=== PATIENT | female | born 1975 | race Caucasian/White ===

== ENCOUNTER → 2018-06-05 | Outpatient (CLI) | payer BC ==
[~2018-06-05] MED LIST: ACET325; ASPI325; PREN-16 PO; TUM
[2018-06-05 13:21] LABS: BASOPHILS ABSOLUTE AUTO 0.04 K/mm3 (0.00-0.23); BASOPHILS PERCENT AUTO 1 % (0-2); EOSINOPHILS ABSOLUTE AUTO 0.06 K/mm3 (0.00-0.68); EOSINOPHILS PERCENT AUTO 1 % (0-6); Hematocrit 43.4 % (33.0-51.0); Hemoglobin 14.4 g/dL (11.5-16.0); IMMATURE GRAN ABSOLUTE AUTO 0.03 K/mm3 (0.00-0.10); IMMATURE GRAN PERCENT AUTO 0 % (0-1); LYMPHOCYTES ABSOLUTE AUTO 2.39 K/mm3 (0.84-5.20); LYMPHOCYTES PERCENT AUTO 28 % (21-46); MONOCYTES ABSOLUTE AUTO 0.54 K/mm3 (0.16-1.47); MONOCYTES PERCENT AUTO 6 % (4-13); Mean Corpuscular HGB 30.5 pg (26.0-34.0); Mean Corpuscular HGB Conc 33.2 g/dL (31.5-36.5); Mean Corpuscular Volume 92 fL (80-100); Mean Platelet Volume 9.8 fL (9.1-12.4); NEUTROPHILS ABSOLUTE AUTO 5.39 K/mm3 (1.96-9.15); NEUTROPHILS PERCENT AUTO 64 % (41-73); Platelet Count 311 K/mm3 (150-400); RDW Coefficient Variation 12.1 % (11.7-14.2); RDW Standard Deviation 40.7 fL (35.1-46.3); Red Blood Cell Count 4.72 M/mm3 (3.80-5.20); White Blood Cell Count 8.45 K/mm3 (4.00-11.30)
[2018-06-05 13:40] LABS: Anion Gap 9 mmol/L (6-16); Blood Urea Nitrogen 11 mg/dL (8-24); Bun/Creatinine Ratio 13.4 (12.0-20.0); CO2, Blood 28 mmol/L (21-32); Calcium, Blood 8.4 mg/dL (8.5-10.1); Chloride, Blood 106 mmol/L (98-108); Creatinine, Blood 0.82 mg/dL (0.40-1.00); Glomerular Filtration Rate >60 (60-); Glucose, Blood 139 mg/dL (70-99); Potassium, Blood 3.4 mmol/L (3.5-5.5); Sodium, Blood 143 mmol/L (136-145); Thyroid Stimulating Hormone 1.252 uIU/mL (0.360-4.800)
[2018-06-05 13:46] LABS: Troponin I <0.017 ng/mL (0.000-0.040)
== END | disposition home or self-care (01) ==
LOC: LAB EV 13:15 → LAB SHORT 13:15
PROVIDERS: Family Medicine
DX: R07.9 Chest pain, unspecified (principal)
CPT/HCPCS: 80048; 84443; 84484; 85025

== ENCOUNTER → 2021-06-16 | Outpatient (CLI) | payer BC | END | disposition home or self-care (01) | LOC: LAB 10:45 → LAB SHORT 10:45 | DX: L08.0 Pyoderma (principal) | CPT/HCPCS: 87070; 87077; 87186; 87205 ==

== ENCOUNTER → 2021-07-07 | Outpatient (CLI) | payer BC, OTHER | END | disposition home or self-care (01) | LOC: LAB SHORT 11:05 → LAB 11:05 | DX: D48.5 Neoplasm of uncertain behavior of skin (principal) | CPT/HCPCS: 88304 ==

== ENCOUNTER → 2021-07-19 | Outpatient (CLI) | payer BC, OTHER | END | disposition home or self-care (01) | LOC: LAB 10:00 → LAB SHORT 10:00 | DX: L08.0 Pyoderma (principal) | CPT/HCPCS: 87070; 87077; 87147; 87186; 87205 ==

== ENCOUNTER 2022-08-17 15:30 | Emergency (ER) | payer BC, OTHER ==
[~2022-08-17] VITALS: Ht 160 cm; Wt 71.7 kg
[2022-08-17 15:34] VITALS: BP 192/110
[2022-08-17 15:57] LABS: BASOPHILS ABSOLUTE AUTO 0.06 K/mm3 (0.00-0.23); BASOPHILS PERCENT AUTO 1 % (0-2); EOSINOPHILS ABSOLUTE AUTO 0.08 K/mm3 (0.00-0.68); EOSINOPHILS PERCENT AUTO 1 % (0-6); Hematocrit 44.1 % (33.0-51.0); Hemoglobin 14.9 g/dL (11.5-16.0); IMMATURE GRAN ABSOLUTE AUTO 0.04 K/mm3 (0.00-0.10); IMMATURE GRAN PERCENT AUTO 0 % (0-1); LYMPHOCYTES ABSOLUTE AUTO 3.47 K/mm3 (0.84-5.20); LYMPHOCYTES PERCENT AUTO 34 % (21-46); MONOCYTES ABSOLUTE AUTO 0.72 K/mm3 (0.16-1.47); MONOCYTES PERCENT AUTO 7 % (4-13); Mean Corpuscular HGB 30.9 pg (26.0-34.0); Mean Corpuscular HGB Conc 33.8 g/dL (31.5-36.5); Mean Corpuscular Volume 92 fL (80-100); Mean Platelet Volume 9.8 fL (9.1-12.4); NEUTROPHILS ABSOLUTE AUTO 5.77 K/mm3 (1.96-9.15); NEUTROPHILS PERCENT AUTO 57 % (41-73); Platelet Count 318 K/mm3 (150-400); RDW Coefficient Variation 13.4 % (11.7-14.2); RDW Standard Deviation 45.1 fL (35.1-46.3); Red Blood Cell Count 4.82 M/mm3 (3.80-5.20); White Blood Cell Count 10.14 K/mm3 (4.00-11.30)
[2022-08-17 16:27] LABS: Albumin, Blood 4.1 g/dL (3.4-5.0); Albumin/Globulin Ratio 1.4 (0.8-1.8); Bilirubin, Total 0.6 mg/dL (0.1-1.0); Bun/Creatinine Ratio 12.8 (12.0-20.0); Calcium, Blood 9.4 mg/dL (8.5-10.1); Creatinine, Blood 0.7 mg/dL (0.40-1.00); Potassium, Blood 3.6 mmol/L (3.5-5.5); Total Protein, Blood 7.1 g/dL (6.4-8.2)
[2022-08-17] MEDS ORDERED: Prinivil5 MG PO (19:40)
== END 2022-08-17 19:53 | disposition home or self-care (01) ==
LOC: ER 15:30
PROVIDERS: Physician Assistant
DX: R07.9 Chest pain, unspecified (principal); I10 Essential (primary) hypertension; F17.200 Nicotine dependence, unspecified, uncomplicated
CPT/HCPCS: 71046; 80053; 83690; 84484; 85025; 93005; 93010; 96374; 99285-25; J1885

== ENCOUNTER 2022-11-24 18:07 | Observation (INO) | payer OTHER ==
[~2022-11-24] VITALS: Ht 172.7 cm; Wt 81.7 kg
[~2022-11-24 18:07] MED LIST changes: +Prinivil5 MG PO
[2022-11-24 18:59] LABS: BASOPHILS ABSOLUTE AUTO 0.03 K/mm3 (0.00-0.23); BASOPHILS PERCENT AUTO 0 % (0-2); EOSINOPHILS ABSOLUTE AUTO 0.14 K/mm3 (0.00-0.68); EOSINOPHILS PERCENT AUTO 2 % (0-6); Hematocrit 42.6 % (33.0-51.0); Hemoglobin 14.1 g/dL (11.5-16.0); IMMATURE GRAN ABSOLUTE AUTO 0.03 K/mm3 (0.00-0.10); IMMATURE GRAN PERCENT AUTO 0 % (0-1); LYMPHOCYTES ABSOLUTE AUTO 2.95 K/mm3 (0.84-5.20); LYMPHOCYTES PERCENT AUTO 38 % (21-46); MONOCYTES ABSOLUTE AUTO 0.41 K/mm3 (0.16-1.47); MONOCYTES PERCENT AUTO 5 % (4-13); Mean Corpuscular HGB 30.1 pg (26.0-34.0); Mean Corpuscular HGB Conc 33.1 g/dL (31.5-36.5); Mean Corpuscular Volume 91 fL (80-100); Mean Platelet Volume 10.2 fL (9.1-12.4); NEUTROPHILS ABSOLUTE AUTO 4.31 K/mm3 (1.96-9.15); NEUTROPHILS PERCENT AUTO 55 % (41-73); Platelet Count 285 K/mm3 (150-400); RDW Coefficient Variation 11.8 % (11.7-14.2); RDW Standard Deviation 39.3 fL (35.1-46.3); Red Blood Cell Count 4.68 M/mm3 (3.80-5.20); White Blood Cell Count 7.87 K/mm3 (4.00-11.30)
[2022-11-24 19:10] LABS: Source, Urine Straight Cath
[2022-11-24 19:29] LABS: Appearance, Urine Clear (Clear); Bilirubin, Urine Neg (Neg); Blood, Urine Neg (Neg); Color, Urine Pale Yellow (P-Yellow); Glucose Qualitative, Urine Neg (Neg); Ketones, Urine Neg (Neg); Leukocyte Esterase, Urine Neg (Neg); Nitrite, Urine Neg (Neg); Protein, Urine Neg (Neg); Specific Gravity, Urine 1.015 (1.003-1.022); Urobilinogen, Urine NORM (Normal)
[2022-11-24 19:39] LABS: Ethanol (Alcohol), Blood, Med 240 mg/dL; Salicylate 2.5 mg/dL (2.8-20.0)
[2022-11-24 19:44] LABS: Acetaminophen, Random <2.0 ug/mL (10.0-30.0); Alanine Aminotransfer (ALT/SGP 45 U/L (12-78); Albumin, Blood 3.7 g/dL (3.4-5.0); Albumin/Globulin Ratio 1.1 (0.8-1.8); Alk Phos 61 U/L (50-136); Anion Gap 8 mmol/L (6-16); Aspartate Aminotrans (AST/SGOT 34 U/L (12-37); Bilirubin, Total 0.2 mg/dL (0.1-1.0); Blood Urea Nitrogen 6 mg/dL (8-24); Bun/Creatinine Ratio 9.6 (12.0-20.0); CO2, Blood 23 mmol/L (21-32); Calcium, Blood 8.1 mg/dL (8.5-10.1); Chloride, Blood 112 mmol/L (98-108); Creatinine, Blood 0.62 mg/dL (0.40-1.00); Globulin, Blood 3.3 g/dL (2.2-4.0); Glomerular Filtration Rate 111 (60-); Glucose, Blood 113 mg/dL (70-99); Potassium, Blood 4.2 mmol/L (3.5-5.5); Sodium, Blood 143 mmol/L (136-145)
[2022-11-24 19:45] LABS: U Amphetamine Screen Not Detected; U Barbituate Screen Not Detected; U Benzodiazapine Screen Not Detected; U Buprenorphine Screen Not Detected; U Cannabinoids Screen Not Detected; U Cocaine Screen Not Detected; U Methadone Screen Not Detected; U Methamphetamine Screen Not Detected; U Opiates Screen Not Detected; U Oxycodone Screen Not Detected; U Phencyclidine Screen Not Detected; U Propoxyphene Screen Not Detected
[2022-11-24 20:56] LABS: Magnesium, Blood 2.4 mg/dL (1.6-2.4)
--- NOTE | 2022-11-24 23:09 | NUR ---
RECEIVED REPORT FROM JONNA MURGUIA. WILL AWAIT PATIENT TRANSFER TO UNIT.
[2022-11-24 23:30] VITALS: BP 145/69
--- NOTE | 2022-11-24 23:30 | NUR ---
PT TRANSPORTED BY HOSPITAL BED TO ICU ROOM 14 BY JONNA QUEZADA. ASSUMED CARE OF PATIENT AT 2330.
[2022-11-24 23:45] VITALS: BP 152/82
[2022-11-25] VITALS (27 sets, daily range): BP systolic 122–189; BP diastolic 81–113
[2022-11-25 00:42] LABS: Source, Urine Foley catheter
[2022-11-25 01:02] LABS: Bilirubin, Urine Neg (Neg); Blood, Urine 2+ (Neg); Glucose Qualitative, Urine Neg (Neg); Ketones, Urine Neg (Neg); Leukocyte Esterase, Urine Neg (Neg); Nitrite, Urine Neg (Neg); Protein, Urine Neg (Neg); Specific Gravity, Urine 1.005 (1.003-1.022); Urobilinogen, Urine NORM (Normal)
[2022-11-25 01:11] LABS: Color, Urine Pale Yellow (P-Yellow)
[2022-11-25 01:12] LABS: Appearance, Urine Clear (Clear); Red Blood Cells, Urine 0-2 /hpf (0-2); Squamous Epithelial Cells Rare /hpf (Few); White Blood Cells, Urine 0-2 /hpf (0-5)
[2022-11-25 01:13] LABS: Bacteria Rare /hpf
--- NOTE | 2022-11-25 03:00 | NUR ---
POISON CONTROL CONTACT GERONIMO FROM POISON CONTROL CALLED FOR STATUS UPDATE. INFORMED OF URINARY RETENTION CONFIRMED VIA BLADDER SCAN, GILLIS PLACED WITH 1200mL URINE OUT, AND PT NOW RESTING COMFORTABLY. VSS STABLE, NO SEIZURE ACTIVITY. PER GERONIMO, CONTINUE SUPPORTIVE CARE AND NOTIFY OF ANY CHANGES.
[2022-11-25 03:08] LABS: Hematocrit 41.8 % (33.0-51.0); Hemoglobin 13.9 g/dL (11.5-16.0); Mean Corpuscular HGB 29.8 pg (26.0-34.0); Mean Corpuscular HGB Conc 33.3 g/dL (31.5-36.5); Mean Corpuscular Volume 90 fL (80-100); Mean Platelet Volume 9.7 fL (9.1-12.4); Platelet Count 286 K/mm3 (150-400); RDW Coefficient Variation 11.9 % (11.7-14.2); RDW Standard Deviation 38.2 fL (35.1-46.3); Red Blood Cell Count 4.67 M/mm3 (3.80-5.20); White Blood Cell Count 10.03 K/mm3 (4.00-11.30)
[2022-11-25 04:11] LABS: Bun/Creatinine Ratio 7.7 (12.0-20.0); Calcium, Blood 7.9 mg/dL (8.5-10.1); Creatinine, Blood 0.65 mg/dL (0.40-1.00); Potassium, Blood 4.4 mmol/L (3.5-5.5)
--- NOTE | 2022-11-25 05:46 | NUR ---
SHIFT SUMMARY. UPON ARRIVAL TO UNIT PT WAS RESTLESS AND AGITATED. 1:1 SITTER PRESENT. REPORT FROM ER NURSE NOTED, PER POISON CONTROL, TO BE ON THE LOOKOUT FOR URINARY RETENTION. BLADDER SCAN REVEALED 999+ URINE RETENTION. GILLIS WAS PLACED WITH 1200mL URINE OUT. PATIENT RESTED COMFORTABLY UNTIL 0500 WHEN SHE WOKE UP. SHE WAS ALERT AND ORIENTED X2 SHE THOUGHT THE MONTH WAS SEPTEMBER AND THAT SHE WAS HERE FOR HYPERTENSION. SHE REMAINED CALM AND COOPERATIVE WITH CARE, AND RESTRAINTS WERE DISCONTINUED AT 0530. MONITOR SHOWED SR WITH HR IN THE 80'S-90'S. PT HAS HISTORY OF HTN BUT BP REMAINED STABLE. LAST BM UNKNOWN. NPO STATUS. GILLIS STILL IN PLACE DRAINING CLEAR YELLOW URINE TO GRAVITY. PIV TO RH INFUSING NS AT 150mL, PIV TO LH. WILL CONTINUE TO MONITOR AND REPORT TO ONCOMING NURSE.
[2022-11-25] MEDS ORDERED: TRAZ50 PO (07:53)
--- NOTE | 2022-11-25 08:28 | NUR ---
ASSUMED CARE REPORT FROM JOHANA RN AT 0700. PT RESTING IN BED. WAKES c VERBAL STIMULI. A&OX 3. FOLLOWS SIMPLE DIRECTIONS. DENIES COMPLAINTS. DENIES SI. STATES SHE FEELS SAFE GOING HOME. RELUCANT TO TALK ABOUT LAST NIGHT EVENTS. DOES REPORTS ETOH USE, STATES SHE IS UNSURE IF SHE TOOK PILLS. FLAT AFFECT, CALM AND COOPERATIVE c CARE. 1:1 SITTER FOR HIGH RISK SI. ROOM MIGITATION COMPLETED BY NOC SHIFT. HTN NOTED, MEDICATED c PRN LABETALOL. TOLERATING PO AND BREAKFAST WELL. WILL CONTINUE TO MONITOR.
[2022-11-25 10:06] LABS: Magnesium, Blood 1.9 mg/dL (1.6-2.4); Phosphorus, Blood 2.8 mg/dL (2.5-4.9)
--- NOTE | 2022-11-25 18:00 | NUR ---
DISCHARGE NO ACUTE CHANGES THIS SHIFT. PT CALM AND COOPERATIVE. DENIES SI/HI. CIWA<5. DR MELO EVALUATED, HOLD DROPPED. D/C INSTRUCTIONS GIVEN. PT VERBALIZED UNDERSTANDING. WILL F/U c PCP AND ADAPT MONDAY. OTD NAD.
== END 2022-11-25 18:05 | disposition home or self-care (01) ==
LOC: ER 18:07 → ICUE 18:08
PROVIDERS: Nurse Practitioner Acute Care; Student in an Organized Health Care Education/Training Program; ADMIT Internal Medicine
DX: T48.1X2A Poisoning by skeletal muscle relaxants [neuromuscular blocking agents], intentional self-harm, initial encounter (principal); J45.909 Unspecified asthma, uncomplicated; F32.A Depression, unspecified; I10 Essential (primary) hypertension; G92.8 Other toxic encephalopathy; F43.21 Adjustment disorder with depressed mood; F17.210 Nicotine dependence, cigarettes, uncomplicated; F10.20 Alcohol dependence, uncomplicated
CPT/HCPCS: 36415; 51702; 80048; 80053; 81001; 81003; 81025; 82947; 83735; 84100; 85025; 85027; 93005; 93010; 94762; 96361; 96372; 96374; 96375; 96376; 99285-25; A9270; G0378; G0480; J1650; J2060; J7030; J7120; P9612

== ENCOUNTER → 2023-07-20 | Outpatient (CLI) | payer OTHER ==
[~2023-07-20] MED LIST changes: +TRAZ50 PO
== END | disposition home or self-care (01) ==
LOC: LAB 15:33 → LAB SHORT 15:33
DX: N39.0 Urinary tract infection, site not specified (principal)
CPT/HCPCS: 87077; 87086; 87186